=== PATIENT | female | born 1985 | race Caucasian/White ===

== ENCOUNTER 2018-10-11 13:09 | Emergency (ER) | payer OTHER ==
[~2018-10-11] VITALS: Ht 160 cm; Wt 63.6 kg
[~2018-10-11 13:09] MED LIST: MAPA500T2 PO; MOTR200T44 PO; PRENTAB55 PO
[2018-10-11 13:11] VITALS: BP 129/74
[2018-10-11] MEDS ORDERED: ADACEL/BOOSTRIX VACCINE (DIPHTH/PERTUSS/ACELL/TETANUS)0.5ML SYR (90715) IM ONE (13:45)
[2018-10-11] MEDS ORDERED: DERMABOND TOPICAL SKIN ADHESIVE TOP ONE (13:45)
== END 2018-10-11 14:06 | disposition home or self-care (01) ==
LOC: M ED 13:09
DX: S61.214A Laceration without foreign body of right ring finger without damage to nail, initial encounter (principal); S61.216A Laceration without foreign body of right little finger without damage to nail, initial encounter; W27.5XXA Contact with paper-cutter, initial encounter; Y92.89 Other specified places as the place of occurrence of the external cause; Y99.0 Civilian activity done for income or pay; F41.9 Anxiety disorder, unspecified; F50.9 Eating disorder, unspecified

== ENCOUNTER → 2019-10-12 | Outpatient (CLI) | payer OTHER ==
[2019-10-12 10:09] LABS: BASO % 0.4 % (0.0-1.0); EOS # 0.1 10^3/uL (0.0-0.5); EOS % 0.9 % (0.0-3.0); HEMATOCRIT 35.3 % (36.0-47.0); HEMOGLOBIN 11.8 g/dl (12.0-15.5); LYMPH # 2.3 10^3/uL (1.5-5.0); LYMPH % 29.9 % (24.0-44.0); MEAN CORPUSCULAR HEMOGLOBIN 29.1 pg (27.0-33.0); MEAN CORPUSCULAR HGB CONC 33.4 g/dl (32.0-36.5); MEAN CORPUSCULAR VOLUME 86.9 fl (80.0-96.0); MONO # 0.4 10^3/uL (0.0-0.8); MONO % 4.9 % (0.0-5.0); NEUTROPHILS # 4.8 10^3/uL (1.5-8.5); NEUTROPHILS % 62.9 % (36.0-66.0); PLATELET COUNT, AUTOMATED 171 10^3/uL (150-450); RED BLOOD COUNT 4.06 10^6/uL (4.00-5.40); WHITE BLOOD COUNT 7.6 10^3/uL (4.0-10.0)
[2019-10-12 12:27] LABS: CHLAMYDIA DNA AMPLIFICATION NEGATIVE (NEGATIVE); GC DNA AMPLIFICATION NEGATIVE (NEGATIVE)
[2019-10-12 12:30] LABS: HEPATITIS C VIRUS ABY INDEX < 0.0 INDEX (<0.8); HIV 1&2 SCREEN CENTAUR NEGATIVE (NEGATIVE); RUBELLA IgG QUALITATIVE IMMUNE (IMMUNE)
== END ==
LOC: M LAB 09:31
PROVIDERS: ATTEND Advanced Practice Midwife
DX: O09.521 Supervision of elderly multigravida, first trimester (principal)

== ENCOUNTER → 2019-11-22 | Outpatient (CLI) | payer OTHER ==
--- NOTE | 2019-11-22 17:31 | REP ---
Obstetric sonography: History: Supervision of second trimester study for anatomy. Findings: Scanning through the gravid uterus demonstrates a viable single intrauterine gestation in a cephalic lie. motion is observed and heart rate is recorded at 147 beats per minute. A posterior fundal placenta is seen without evidence of previa or abruption. grade 1. Amniotic fluid is subjectively normal. Closed cervical length is viewed transabdominally and measured at 3.7 cm. There is a 7.9 x 3.6 x 6.2 cm complex cystic structure in the right adnexa adjacent to the right ovary which may be a hydrosalpinx. There is a small left choroid plexus cyst. No other abnormality is seen. The following additional anatomic structures are identified and felt to be unremarkable: cranium, cavum, cerebellum and posterior fossa, nuchal fold, face and profile, four-chamber heart with left and right ventricular outflow tract views, diaphragm, left-sided stomach, abdominal wall cord insertion, three-vessel cord, kidneys and bladder, spine, upper and lower extremities. Biometry chart: BPD 3.9 cm = 18 weeks 0 days HC 14.6 cm = 17 weeks 5 days AC 11.7 cm = 17 weeks 3 days FL 2.7 cm = 18 weeks 1 day HL 2.6 cm = 18 weeks 2 days HC/AC ratio normal 1.25. Cephalic index normal 0.75. Estimated weight 208 grams, 0 pounds 7 ounces, 41st percentile for 17 weeks 6 days. Impression: Viable single intrauterine gestation at 17 weeks 6 days by today's composite sonographic criteria. There is a small left choroid plexus cyst. A 7.9 cm complex cystic structure is seen medial to the maternal right ovary, question hydrosalpinx.
== END ==
LOC: M WHC 09:18
PROVIDERS: ATTEND Advanced Practice Midwife
DX: O99.89 Other specified diseases and conditions complicating pregnancy, childbirth and the puerperium (principal); N83.201 Unspecified ovarian cyst, right side; Z3A.17 17 weeks gestation of pregnancy

== ENCOUNTER → 2020-01-10 | Outpatient (REF) | payer OTHER | LOC: M LAB REF 17:22 | PROVIDERS: ATTEND Dermatology | DX: D21.21 Benign neoplasm of connective and other soft tissue of right lower limb, including hip (principal) ==

== ENCOUNTER → 2020-01-24 | Outpatient (REF) | payer OTHER ==
[2020-01-24 11:20] LABS: HEMATOCRIT 33.5 % (36.0-47.0); HEMOGLOBIN 11.1 g/dl (12.0-15.5); MEAN CORPUSCULAR HEMOGLOBIN 29.8 pg (27.0-33.0); MEAN CORPUSCULAR HGB CONC 33.1 g/dl (32.0-36.5); MEAN CORPUSCULAR VOLUME 90.1 fl (80.0-96.0); PLATELET COUNT, AUTOMATED 163 10^3/uL (150-450); RED BLOOD COUNT 3.72 10^6/uL (4.00-5.40); WHITE BLOOD COUNT 9.7 10^3/uL (4.0-10.0)
== END ==
LOC: M PLALAB 08:15
PROVIDERS: ATTEND Advanced Practice Midwife
DX: Z34.92 Encounter for supervision of normal pregnancy, unspecified, second trimester (principal)

== ENCOUNTER → 2020-03-26 | Outpatient (REF) | payer OTHER | LOC: M SFHCWAGY 11:51 | PROVIDERS: ATTEND Specialist | DX: Z34.00 Encounter for supervision of normal first pregnancy, unspecified trimester (principal) ==

== ENCOUNTER 2020-05-02 05:16 | Inpatient (IN) | payer OTHER ==
--- NOTE | 2020-05-02 05:47 | HPEPDOC ---
Obstetrical History & Physical General Date of Admission May 02, 2020 at 05:16 History of Present Illness 34yo at 41+1 weeks EGA. Chief Complaint: Contractions, term, LOF, term Information Provided By: Patient, RN/MD Age: 34 : 3 Term: 2 Pre-term: 0 Abortions: 0 Livin Care Care: Good Care Dating Final EDC: Apr 24, 2020 Final EDC by: LMP, 1st trimester (US) Antepartum Course Diagnos(e)s uncomplicated course Past Medical History Past Obstetrical History : Past Obstetrical History: Multigravida (History of term x 2; both uncomplicated) Past Medical History Medical History none Surgical History: Denies/None Social History Social history no t/e/d Marital Status: Family situation: Spouse/partner home Psychosocial History: No pertinent psych hx * Smoker: non-smoker Alcohol: Denies Drugs: denies Abuse Violence Screening Have you been hit/kicked/slapp: No Have you been sexually assault: No Allergies Coded Allergies: No Known Allergies (Unverified , 10/11/18) Physical Examination Physical Examination GENERAL: Alert and oriented times three. BREAST: . ABDOMEN: Gravid and non-tender to touch. FETUS: Is vertex (VTX) by sterile vaginal examination (SVE), fetus is vertex (VTX) by Tom. HEART RATE: Regular rate and rhythm. LUNGS: Clear to auscultation (CTA). EXTREMITIES: No edema. No clonus. Deep tendon reflexes (DTRs) + . Other physical findings SVE: 10cm/100%/+2, grossly ruptured, clear fluid. Laboratory Data [facility] Laboratory Tests 2 05/02/20 05:25: Serology Scanned Report Hepatitis B Testing Pertinent Laboratoy Data Blood Type: O- HIV: Negative Hepatitis B: Negative Hepatitis C: Negative Rapid Plasma Reagin: Nonreactive Rubella: Immune Chlamydia/Gonorrhea: Negative Group B Streptococcus: Negative Anatomy Ultrasound Normal Anatomy: Yes Placenta Previa: No Assessment Heart Rate (FHR): 140 Variability: Moderate Accelerations: Positive Decelerations: None Tocometer Contractions: Yes Frequency: every 1-3 min. Assessment/Plan Assessment Khadijah is a 34-year-old (G)3 para (P)2-0-0-2 at 41+2 weeks . Presents to Labor and Delivery (L&D) in spontaneous labor with ruptured membranes, in the second stage. Plan Admit and orient. Transplant Surgeon and consent. Group B Streptococcus (GBS) [negative]. Labs per unit protocol. NAYELI LONGORIA DO May 02, 2020 05:47
--- NOTE | 2020-05-02 05:57 | DNPDOC ---
[facility] Delivery Note Delivery Note DATE OF DELIVERY: 05/02/20 PREDELIVERY DIAGNOSIS:40+2 weeks' gestation and labor. POST DELIVERY DIAGNOSIS: Delivered. PROCEDURE: Spontaneous vaginal delivery [employer]: Dr. Daniela Moore DO ANESTHESIA: none. ESTIMATED BLOOD LOSS: 200 mL. FINDINGS: 7 pound 1 ounce 3210g, female infant, Score 8/9, nuchal cord times x1. DELIVERY SUMMARY: Patient is a 34-year-old 3 now para 3-0-0-3 who was admitted to labor and delivery in active labor in the second stage. Without epidural anesthesia without any Pitocin augmentation, the second stage of labor progressed rapidly. The head delivered AWA and restituted LOT. The anterior shoulder delivered with gentle downward guidance, and the remainder of the body delivered with ease. Time of delivery: 0516 I delayed cord clamping for approximately 1 minute, then the cord was doubly clamped and cut. The third stage was actively managed with 10 units of IM Pitocin. The placenta delivered spontaneously and intact within 10 minutes of delivery. No missing cotyledons were noted. The uterine fundus was firm at 2 cm below the umbilicus. The cervix, vagina, vulva and perineum were inspected for lacerations. Second- degree laceration was noted and repaired under local anesthesia with 3-0 Vicryl. Excellent hemostasis was noted. Sponge, needle and instrument counts were correct per protocol. DO VON Herron JONATHAN R. DO May 02, 2020 05:57
[2020-05-02] MEDS ORDERED: METHYLERGONOVINE MALEATE 0.2 MG TAB PO PRN (06:00)
[2020-05-02] MEDS ORDERED: RHOGAM 300 MCG (1500 IU) INJ (J2790) IM SCH (06:00)
[2020-05-02] MEDS ORDERED: OXYTOCIN INJ 10 UNITS/ML VIAL (J2590) IM ONE (06:00)
[2020-05-02] MEDS ORDERED: LIDOCAINE 1% MDV 20ML VIAL INFIL ONE (06:00)
[2020-05-02] MEDS ORDERED: PROMETHAZINE 25 MG TAB PO PRN (06:00)
[2020-05-02] MEDS ORDERED: DOCUSATE SODIUM 100 MG CAP PO PRN (06:00)
[2020-05-02] MEDS ORDERED: ACETAMINOPHEN TAB 650MG DOSE (2X325MG) PO PRN (06:00)
[2020-05-02] MEDS ORDERED: MEASLES,MUMPS,RUBELLA VACCINE INJ (MMR-II) (90707) SC SCH (06:00)
[2020-05-02] MEDS ORDERED: IBUPROFEN 600MG TAB PO PRN (06:00)
[2020-05-02] MEDS ORDERED: DIBUCAINE 1% OINTMENT 30GM TOP PRN (06:00)
[2020-05-02] MEDS: IBUPROFEN 800 MG TAB PO PRN ×2 (06:49→15:27)
[2020-05-02 07:39] LABS: HEMATOCRIT 34.5 % (36.0-47.0); HEMOGLOBIN 11.7 g/dl (12.0-15.5); MEAN CORPUSCULAR HEMOGLOBIN 29.9 pg (27.0-33.0); MEAN CORPUSCULAR HGB CONC 33.9 g/dl (32.0-36.5); MEAN CORPUSCULAR VOLUME 88.2 fl (80.0-96.0); PLATELET COUNT, AUTOMATED 150 10^3/uL (150-450); RED BLOOD COUNT 3.91 10^6/uL (4.00-5.40)
[2020-05-02 08:17] VITALS: BP 132/59
[2020-05-02] MEDS: PRENATAL VITAMINS CHEWABLE TABLET PO SCH (09:00)
[2020-05-02] MEDS: ACETAMINOPHEN 500 MG TAB PO PRN ×2 (09:21→19:38)
[2020-05-02 17:51] VITALS: BP 115/57
[2020-05-03 06:00] VITALS: BP 139/79
[2020-05-03] MEDS: PRENATAL VITAMINS CHEWABLE TABLET PO SCH (07:51)
[2020-05-03] MEDS ORDERED: INFLUENZA QUADRIVALENT PF VACCINE 0.5ML SYRINGE IM ONE (09:00)
== END 2020-05-03 11:45 | disposition home or self-care (01) | DRG 560 ==
LOC: M LDI 05:16 → M OBS 08:14
PROVIDERS: ADMIT Obstetrics & Gynecology; ATTEND Obstetrics & Gynecology
PROC: 10E0XZZ Delivery of Products of Conception, External Approach (ICD-10-PCS; principal; 2020-05-02)
PROC: 0KQM0ZZ Repair Perineum Muscle, Open Approach (ICD-10-PCS; 2020-05-02)
DX: O48.0 Post-term pregnancy (principal); Z3A.40 40 weeks gestation of pregnancy; O70.1 Second degree perineal laceration during delivery; Z37.0 Single live birth

== ENCOUNTER → 2021-01-24 | Outpatient (REF) | payer OTHER | LOC: M SFHCWAGY 18:44 | PROVIDERS: ATTEND Advanced Practice Midwife | DX: Z01.419 Encounter for gynecological examination (general) (routine) without abnormal findings (principal); Z12.4 Encounter for screening for malignant neoplasm of cervix ==

== ENCOUNTER → 2021-03-07 | Outpatient (CLI) | payer OTHER ==
--- NOTE | 2021-03-07 08:53 | REP ---
INDICATION: N83.291 COMPLEX CYST OF RT OVARY. COMPARISON: Comparison obstetric sonography dated November 22, 2019 described a 3.6 x 7.9 x 6.2 cm right adnexal cystic lesion.. TECHNIQUE: Transabdominal scanning was performed. The patient declined transvaginal imaging. Exam quality was inhibited slightly by overlying bowel gas.. FINDINGS: Uterine dimensions are normal at 8.3 x 4.8 x 5.7 cm. Endometrial echo is 1.0 cm thick and centrally placed. No free fluid is seen in the cul-de-sac. Visualized bladder mckinley are smooth. The right ovary has dimensions of 2.3 x 2.6 x 2.2 cm. It's Doppler flow is normal with a resistive index of 0.67. No right ovarian cyst or solid lesion. The left ovary dimensions are normal as well at 3.2 x 3.3 x 2.6 cm. It's Doppler flow was normal with resistive index of 0.58. No left ovarian abnormality. IMPRESSION: Normal pelvic sonography. <Electronically signed by John Hatch > 03/07/21 0849
== END ==
LOC: M WHC 07:59
PROVIDERS: ATTEND Advanced Practice Midwife
DX: N83.291 Other ovarian cyst, right side (principal)

== ENCOUNTER → 2022-07-18 | Outpatient (REF) | payer OTHER ==
[2022-07-18 21:08] LABS: BASO % 0.3 % (0.0-1.0); EOS # 0.2 10^3/uL (0.0-0.5); EOS % 1.7 % (0.0-3.0); HEMATOCRIT 39.7 % (36.0-47.0); HEMOGLOBIN 13.4 g/dl (12.0-15.5); LYMPH # 4.1 10^3/uL (1.5-5.0); LYMPH % 39.1 % (24.0-44.0); MEAN CORPUSCULAR HEMOGLOBIN 29.5 pg (27.0-33.0); MEAN CORPUSCULAR HGB CONC 33.8 g/dl (32.0-36.5); MEAN CORPUSCULAR VOLUME 87.3 fl (80.0-96.0); MONO # 0.5 10^3/uL (0.0-0.8); MONO % 4.7 % (2.0-8.0); NEUTROPHILS # 5.6 10^3/uL (1.5-8.5); NEUTROPHILS % 53.9 % (36.0-66.0); PLATELET COUNT, AUTOMATED 236 10^3/uL (150-450); RED BLOOD COUNT 4.55 10^6/uL (4.00-5.40); WHITE BLOOD COUNT 10.5 10^3/uL (4.0-10.0)
[2022-07-18 21:36] LABS: ALKALINE PHOSPHATASE 54 U/L (46-116); ALT/SGPT 19 U/L (7.0-40); AST/SGOT 17 U/L (<34); BILIRUBIN,TOTAL 0.3 MG/DL (0.3-1.2); BLOOD UREA NITROGEN 15 MG/DL (9-23); CALCIUM LEVEL 8.5 MG/DL (8.5-10.1); CARBON DIOXIDE LEVEL 27 MMOL/L (20-31); CHLORIDE LEVEL 104 MMOL/L (98-107); CREATININE FOR GFR 0.78 MG/DL (0.55-1.30); GLOMERULAR FILTRATION RATE > 60.0 (>60); GLUCOSE, FASTING 86 MG/DL (60-100); POTASSIUM SERUM 4.1 MMOL/L (3.5-5.1); SODIUM LEVEL 139 MMOL/L (136-145); TOTAL PROTEIN 7.1 G/DL (5.7-8.2)
[2022-07-18 21:38] LABS: FREE T4 1.12 NG/DL (0.89-1.76); THYROID STIMULATING HORMONE 0.756 uIU/ML (0.55-4.78)
== END ==
LOC: M LAB REF 20:50
PROVIDERS: ATTEND Nurse Practitioner Family
DX: Z00.00 Encounter for general adult medical examination without abnormal findings (principal); R53.83 Other fatigue

== ENCOUNTER → 2022-07-30 | Outpatient (REF) | payer OTHER | LOC: M PLALAB 13:42 | PROVIDERS: ATTEND Advanced Practice Midwife | DX: N93.0 Postcoital and contact bleeding (principal); Z01.419 Encounter for gynecological examination (general) (routine) without abnormal findings ==

== ENCOUNTER → 2022-09-12 | Outpatient (CLI) | payer OTHER | LOC: M WHC 08-28 08:47 | PROVIDERS: ATTEND Advanced Practice Midwife | DX: N83.291 Other ovarian cyst, right side (principal); N85.4 Malposition of uterus; N93.0 Postcoital and contact bleeding ==

== ENCOUNTER → 2023-03-17 | Outpatient (CLI) | payer OTHER | LOC: M WHC 08:40 | PROVIDERS: ATTEND Advanced Practice Midwife | DX: N83.201 Unspecified ovarian cyst, right side (principal) ==

== ENCOUNTER → 2023-07-31 | Outpatient (REF) | payer OTHER | LOC: M PLALAB 13:39 | PROVIDERS: ATTEND Advanced Practice Midwife | DX: Z01.419 Encounter for gynecological examination (general) (routine) without abnormal findings (principal); Z12.4 Encounter for screening for malignant neoplasm of cervix ==

== ENCOUNTER → 2023-09-09 | Outpatient (REF) | payer OTHER | LOC: M PLALAB 15:48 | PROVIDERS: ATTEND Advanced Practice Midwife | DX: R87.612 Low grade squamous intraepithelial lesion on cytologic smear of cervix (LGSIL) (principal) ==

== ENCOUNTER → 2023-09-18 | Outpatient (REF) | payer OTHER | LOC: M LAB REF 16:25 | PROVIDERS: ATTEND Physician Assistant | DX: J02.9 Acute pharyngitis, unspecified (principal) ==

== ENCOUNTER → 2023-10-05 | Outpatient (CLI) | payer OTHER ==
[2023-10-05 14:30] LABS: BASO % 0.3 % (0.0-1.0); EOS % 0.6 % (0.0-3.0); HEMATOCRIT 38.1 % (36.0-47.0); HEMOGLOBIN 12.6 g/dl (12.0-15.5); LYMPH # 2.1 10^3/uL (1.5-5.0); LYMPH % 33.2 % (24.0-44.0); MEAN CORPUSCULAR HEMOGLOBIN 28.8 pg (27.0-33.0); MEAN CORPUSCULAR HGB CONC 33.1 g/dl (32.0-36.5); MONO # 0.4 10^3/uL (0.0-0.8); MONO % 6.2 % (2.0-8.0); NEUTROPHILS # 3.7 10^3/uL (1.5-8.5); NEUTROPHILS % 59.5 % (36.0-66.0); PLATELET COUNT, AUTOMATED 213 10^3/uL (150-450); RED BLOOD COUNT 4.38 10^6/uL (4.00-5.40); WHITE BLOOD COUNT 6.3 10^3/uL (4.0-10.0)
[2023-10-05 14:35] LABS: ALBUMIN 3.8 G/DL (3.2-5.2); ALKALINE PHOSPHATASE 40 U/L (46-116); ALT/SGPT 12 U/L (7.0-40); AST/SGOT < 8 U/L (<34); BILIRUBIN,TOTAL 0.5 MG/DL (0.3-1.2); BLOOD UREA NITROGEN 14 MG/DL (9-23); CALCIUM LEVEL 9.2 MG/DL (8.5-10.1); CARBON DIOXIDE LEVEL 29 MMOL/L (20-31); CHLORIDE LEVEL 106 MMOL/L (98-107); CHOLESTEROL LEVEL 204 MG/DL (<200); CHOLESTEROL RISK RATIO 4.64 (<5); CREATININE FOR GFR 0.83 MG/DL (0.55-1.30); GLOMERULAR FILTRATION RATE > 60.0 (>60); GLUCOSE, FASTING 75 MG/DL (60-100); HDL CHOLESTEROL 43.9 MG/DL (>40); LDL CHOLESTEROL 144.7 MG/DL (<100); NON-HDL-C 160.1 MG/DL; POTASSIUM SERUM 4.2 MMOL/L (3.5-5.1); SODIUM LEVEL 139 MMOL/L (136-145); THYROID STIMULATING HORMONE 0.736 uIU/ML (0.55-4.78); TOTAL PROTEIN 6.6 G/DL (5.7-8.2); TRIGLYCERIDES LEVEL 77 MG/DL (<150)
[2023-10-05 14:36] LABS: FREE T4 1.06 NG/DL (0.89-1.76)
== END ==
LOC: M PLALAB 08:18
PROVIDERS: ATTEND Nurse Practitioner Family
DX: Z00.00 Encounter for general adult medical examination without abnormal findings (principal); R53.83 Other fatigue; Z13.220 Encounter for screening for lipoid disorders; E55.9 Vitamin D deficiency, unspecified

== ENCOUNTER → 2024-03-11 | Outpatient (REF) | payer OTHER ==
[2024-03-15 13:01] LABS: HPV APTIMA Not Detected (Not Detected)
== END ==
LOC: M PLALAB 10:29
PROVIDERS: ATTEND Advanced Practice Midwife
DX: Z87.42 Personal history of other diseases of the female genital tract (principal); Z12.4 Encounter for screening for malignant neoplasm of cervix; Z11.51 Encounter for screening for human papillomavirus (HPV)

== ENCOUNTER → 2025-07-12 | Outpatient (CLI) | payer OTHER | LOC: M WHC 06:43 | PROVIDERS: ATTEND Nurse Practitioner Family | DX: K42.9 Umbilical hernia without obstruction or gangrene (principal) ==